=== PATIENT | female | born 1980 | race Caucasian/White ===

== ENCOUNTER 2023-02-09 17:12 | Emergency (ER) | payer OTHER, SELFPAY ==
[2023-02-09 17:28] VITALS: BP 107/70; PULSE 63; RESP 16; TEMP 36.7; O2SAT 98
--- NOTE | 2023-02-09 17:51 | ED.URI ---
HPI - URI/Sore Throat General Chief Complaint: Upper Respiratory Infection Stated Complaint: cough,short of breath Time Seen by Provider: 02/09/23 17:51 Source: patient Mode of arrival: ambulatory Limitations: no limitations History of Present Illness HPI Narrative: 42 yr old female presents with complaint of cough, nasal congestion for the past 5 days. Afebrile. reports shortness of breath with exertion starting today. Concern for pneumonia. No respiratory distress noted. All systems reviewed and negative except as noted above. Related Data Allergies Allergy/AdvReac Type Severity Reaction Status Date / Time Penicillins Allergy Vomiting Verified 02/09/23 17:58 Review of Systems Review of Systems: CONSTITUTIONAL: Denies fever, chills, or sweats. reports fatigue. EYES: Denies visual changes, redness, or discharge. ENT: reports rhinorrhea, congestion. Denies sore throat, or otalgia. CARDIOVASCULAR: Denies chest pain, palpitations, or edema. RESPIRATORY: Reports cough and dyspnea with exertion. GASTROINTESTINAL: Denies abdominal pain, nausea, vomiting, or diarrhea. GENITOURINARY: Denies dysuria or hematuria. SKIN: Denies rash or itching. MUSCULOSKELETAL: Denies back pain, joint pain, or myalgia. NEUROLOGIC: Denies headache, numbness, or weakness. PSYCHIATRIC: Denies anxiety or depression. All other systems reviewed are negative, except as documented in HPI. PMFSH Comments At time of signature, agree with nursing past medical, surgical, social and family history. There is no relevant family history pertinent to the presenting complaint. Exam Narrative: GENERAL: This is a well-nourished, well-developed patient, in no apparent distress. HEAD: normocephalic, atraumatic. EYES: PERRL. Sclera clear/white. Vision is grossly intact. EARS: External ears normal, auditory canals clear and without drainage, TMs normal without perforation. Hearing grossly intact. NOSE: External nose normal with no obvious nasal discharge, nares without redness, no rhinorrhea. THROAT: Mucous membranes moist, Mild erythema to posterior pharynx without swelling or exudates. NECK: Neck supple, non-tender without lymphadenopathy, masses or thyromegaly. CARDIOVASCULAR: Regular rate and rhythm without murmurs, gallops, or rubs. RESPIRATORY: Coarse lung sounds throughout all lung [place]. Breath sounds equal bilaterally. No wheezes, rales, SKIN: warm, Dry, intact with no suspicious lesions or rash, good texture and turgor. NEURO: awake, alert, and oriented to person, place and time. There were no obvious focal neurologic abnormalities. EXTREMITIES: No joint tenderness, effusion, or edema noted. Course Course Level of Care: Express Care Visit Vital Signs Vital signs: Vital Signs Temperature 36.7 C 02/09/23 17:28 Pulse Rate 63 02/09/23 17:28 Respiratory Rate 16 02/09/23 17:28 Blood Pressure 107/70 02/09/23 17:28 Pulse Oximetry 98 02/09/23 17:28 Oxygen Delivery Room Air 02/09/23 17:28 Temperature 36.7 C 02/09/23 17:28 Pulse Rate 63 02/09/23 17:28 Respiratory Rate 16 02/09/23 17:28 Blood Pressure 107/70 02/09/23 17:28 Pulse Oximetry 98 02/09/23 17:28 Oxygen Delivery Room Air 02/09/23 17:28 Reviewed MDM - URI/Sore Throat MDM Narrative Medical decision making narrative: Patient is aware of diagnosis, understands and agrees to treatment plan. Anticipatory guidance given. Patient agrees to follow-up as directed and is aware of reasons to seek care at the emergency department. Portions of this record may have been created with voice recognition software will treat patient with the antibiotic due to lung sounds , patient's symptoms. Discharge Plan Discharge Clinical Impression: Upper respiratory infection with cough and congestion Patient Disposition: Home, Self-Care Condition: Stable Instructions: Antibiotic Form, Upper Respiratory Infection (ED) Additional Instr
== END 2023-02-09 18:04 | disposition home or self-care (01) ==
PROVIDERS: Emergency Provider Nurse Practitioner Family
DX: J06.9 Acute upper respiratory infection, unspecified (principal)
CPT/HCPCS: 99203; G0463

== ENCOUNTER 2023-05-19 08:29 | Emergency (ER) | payer OTHER, SELFPAY ==
[2023-05-19 08:53] VITALS: BP 119/79; PULSE 73; RESP 18; TEMP 36.6; O2SAT 97
[2023-05-19 08:57] LABS: Basophils Percent Auto 0.2 % (0.2-1.2); Eosinophils Absolute Auto 0.1 K/mm3 (0-0.3); Eosinophils Percent Auto 0.6 % (0-4.4); Hematocrit 46.3 % (37.0-47.0); Hemoglobin 15.9 g/dL (12.0-15.0); Immature Granulocyte Absolute 0.05 K/mm3 (0.00-0.031); Immature Granulocyte Percent A 0.3 % (0-0.5); Lymphocytes Absolute Auto 2.18 K/mm3 (0.9-3.2); Lymphocytes Percent Auto 13.3 % (18.3-44.2); Mean Corpuscular HGB Conc 34.3 g/dl (32-36); Mean Corpuscular Hemoglobin 30.9 pg (26-34); Mean Corpuscular Volume 90.1 fl (80-100); Mean Platelet Volume 9.1 fl (7.4-10.4); Monocytes Absolute Auto 0.9 K/mm3 (0.1-0.6); Monocytes Percent Auto 5.2 % (2.6-8.5); Neutrophils Absolute Auto 13.2 K/mm3 (1.3-6.7); Neutrophils Percent Auto 80.4 % (45.5-73.1); Platelet Count Result 342 k/mm3 (150-375); Red Blood Count 5.14 M/mm3 (4.2-5.4); Red Cell Distribution Width 11.8 % (11.5-14.5); White Blood Count 16.4 K/mm3 (4.5-10.0)
[2023-05-19 09:17] LABS: Alanine Aminotransferase 31 U/L (6-35); Albumin Level 4.7 g/dL (3.5-5.1); Alkaline Phosphatase 66 U/L (38-126); Anion Gap 7 mmol/L (4-12); Aspartate Amino Transferase 35 U/L (14-36); Blood Urea Nitrogen 10 mg/dL (7-17); Calcium 9.7 mg/dL (8.4-10.2); Carbon Dioxide 24 mmol/L (22-30); Chloride 106 mmol/L (98-107); Estimated CRCL calculation 128 ml/min; Estimated Glomerular Filt Rate > 60; Glucose 96 mg/dL (65-110); Lipase 48 U/L (23-300); Potassium 3.5 mmol/L (3.4-5.0); Sodium 137 mmol/L (137-145)
[2023-05-19] MEDS: SODIUM CHLORIDE 0.9% IV 1,000 ML 999 ML IV CONT (09:30)
[2023-05-19 10:30] VITALS: BP 106/48; PULSE 58; RESP 16; O2SAT 99
--- NOTE | 2023-05-19 10:34 | ED.GENADULT ---
HPI - General Adult General Chief complaint: Abdominal Pain Stated complaint: STOMACH BUG Time Seen by Provider: 05/19/23 08:44 History of Present Illness HPI narrative: Patient is a 42-year-old female who presents ER with diarrhea and dehydration. Reports she has been having frequent watery stools over last 5 days. She feels like she is very dehydrated and fatigued. No blood in her stool. She did recently finish clindamycin that she took for a dental infection. No abdominal pain and no fevers. No syncope or dizziness. She cannot identify any alleviating factors. She has not had a large stool over last couple days due to her dehydration but gets the cramping feeling that she needs to have a bowel movement but cannot. Related Data Allergies Allergy/AdvReac Type Severity Reaction Status Date / Time Penicillins Allergy Vomiting Verified 02/09/23 17:58 Review of Systems Review of Systems: All systems reviewed & are unremarkable except as noted in HPI and below Constitutional: Constitutional: Denies chills, Reports fatigue and Denies fever(s) ENT: Reports system reviewed and no additional complaints, except as documented Cardiovascular: Cardiovascular: Reports no additional cardiovascular complaints Respiratory: Respiratory: Reports no additional respiratory complaints Gastrointestinal: Gastrointestinal: Denies abdominal pain, Denies constipation, Reports diarrhea, Denies nausea and Denies vomiting Genitourinary: Genitourinary: Reports no additional female genitourinary complaints PMF Past Medical History Medical History (Updated 05/19/23 @ 12:20 by Pawan Suh MD) Healthy female adult Surgical History Surgical History (Updated 05/19/23 @ 10:36 by Pawan Suh MD) No history of previous surgery Exam Narrative: GENERAL: Well-appearing, well-nourished, and in no acute distress. HEAD: Normocephalic, atraumatic. ENT: Mucous membranes moist. NECK: Supple. CHEST: Clear to auscultation. No respiratory distress. HEART: Regular rate and rhythm. Normal peripheral pulses. ABDOMEN: Soft, nontender, nondistended. EXTREMITIES: Normal range of motion. No edema. SKIN: Warm, dry, no rash. NEURO: Alert and oriented x3. PSYCH: Normal mood and affect. Course Course Emergency Course: Discussed lab results. Patient feels improved with fluids. Unable to provide a stool sample despite 4 hour stay in the ER. Discharge home. Vital Signs Vital signs: Vital Signs Temperature 97.8 F 05/19/23 08:53 Pulse Rate 73 05/19/23 08:53 Respiratory Rate 18 05/19/23 08:53 Blood Pressure 119/79 05/19/23 08:53 Pulse Oximetry 97 05/19/23 08:53 Temperature 97.8 F 05/19/23 08:53 Pulse Rate 60 05/19/23 11:30 Respiratory Rate 16 05/19/23 11:30 Blood Pressure 98/54 L 05/19/23 11:30 Pulse Oximetry 99 05/19/23 11:30 Medical Decision Making Vital Signs Vital Signs: Vital Signs Temperature 97.8 F 05/19/23 08:53 Pulse Rate 73 05/19/23 08:53 Respiratory Rate 18 05/19/23 08:53 Blood Pressure 119/79 05/19/23 08:53 Pulse Oximetry 97 05/19/23 08:53 Temperature 97.8 F 05/19/23 08:53 Pulse Rate 60 05/19/23 11:30 Respiratory Rate 16 05/19/23 11:30 Blood Pressure 98/54 L 05/19/23 11:30 Pulse Oximetry 99 05/19/23 11:30 Lab Data 05/19/23 08:49 05/19/23 08:49 Labs: Lab Results 05/19/23 05/19/23 Range/Units 08:49 10:29 WBC 16.4 H (4.5-10.0) K/mm3 RBC 5.14 (4.2-5.4) M/mm3 Hgb 15.9 H (12.0-15.0) g/dL Hct 46.3 (37.0-47.0) % MCV 90.1 (80-100) fl MCH 30.9 (26-34) pg MCHC 34.3 (32-36) g/dl RDW 11.8 (11.5-14.5) % Plt Count 342 (150-375) k/mm3 MPV 9.1 (7.4-10.4) fl Immature Gran % (Auto) 0.3 (0-0.5) % Neut % (Auto) 80.4 H (45.5-73.1) % Lymph % (Auto) 13.3 L (18.3-44.2) % [place] % (Auto) 5.2 (2.6-8.5) % Eos % (Auto) 0.6 (0-4.4) % Baso % (Auto) 0.
[2023-05-19 11:29] LABS: Appearance Urine Clear (Clear); Bacteria Urine Rare /hpf; Bilirubin Urine 1+ (Negative); Blood Urine 2+ (Negative); Color Urine Dark Yellow (Yellow); Glucose Urine UA Negative (Negative); Ketones Urine 4+ mg/dL (Negative); Leukocyte Esterase Ur Negative LEU/UL (Negative); Need Manual Microscopic Reviewed; Nitrate Urine Negative (Negative); Non Pathogenic Casts 0-2; Protein Urine 1+ mg/dL (Negative); Specific Grav Ur 1.033 (1.001-1.035); Squamous Epithelial Cell Urine Few /hpf (Few); WBC Urine 0-5 /hpf (0-3); pH Urine 5.5 (5.0-9.0)
[2023-05-19 11:30] VITALS: BP 98/54; PULSE 60; RESP 16; O2SAT 99
[2023-05-19 11:30] LABS: Add Urine Microscopic? YES
[2023-05-19 12:40] VITALS: BP 120/85; PULSE 60; RESP 16; O2SAT 100
== END 2023-05-19 12:40 | disposition home or self-care (01) ==
PROVIDERS: Emergency Provider Emergency Medicine
DX: K52.9 Noninfective gastroenteritis and colitis, unspecified (principal)
CPT/HCPCS: 36415; 80053; 81001; 81025; 83690; 85025; 96360; 99283; J7030

== ENCOUNTER 2024-07-10 08:07 | Emergency (ER) | payer OTHER, SELFPAY ==
[2024-07-10] VITALS (8 sets, daily range): BP systolic 129–138; BP diastolic 74–87; PULSE 64–76; RESP 16–20; TEMP 36.3; O2SAT 98–100
--- NOTE | ~2024-07-10 | CT_ITS ---
History: Left cervical radiculopathy PROCEDURE: CT cervical spine without intravenous contrast. COMPARISON: None TECHNIQUE: Multiple contiguous axial images of the cervical spine were performed without the administration of i ntravenous contrast. DLP: 221 mGy-cm FINDINGS: Straightening and slight reversal of the normal curvature of the cervical spine is identified, likely muscular in origin. No acute fractures are present. Trace degenerative disease with posterior osteophyte formation (at the level of T1/T2). The bilateral lung apices are unremarkable. No soft tissue abnormality is present. The airway is patent. Impression: Straightening and slight reversal of the normal curvature of the cervical spine, likely muscular in o rigin. Trace degenerative disease, without acute fracture. Reviewed, dictated and finalized at location A. Impression: Straightening and slight reversal of the normal curvature of the cervical spine , likely muscular in origin. Trace degenerative disease, without acute fracture.
--- NOTE | ~2024-07-10 | XR_ITS ---
CHEST RADIOGRAPH, PA AND LATERAL CLINICAL HISTORY: LEFT SIDE ARM AND NECK PAIN . COMPARISON: None available TECHNIQUE: PA and lateral views of the chest. FINDINGS The cardiomediastinal silhouette is unremarkable. The lungs are clear. IMPRESSION: No focal infiltrate or effusion. Reviewed, dictated and finalized at location A.
--- OUTSIDE RECORDS SUMMARY | 2024-07-10 08:09 | XMS_ITS | Clinical Summary ---
Author Organization [facility] Address [address] [place] [address] Care Team Providers Care Brake Engineer Name Role Phone Unknown, Provider Primary Care Provider Unavaila ble Source Comments [facility],non-owned Affiliates and Associated Physician Practices is amultiple site organization consisting of ambulatory clinics and hospital sitesin [place], [place], [place] and [place]. This disclosure is being madepursuant to the Care Everywhere program and may not contain all information available regarding this patient. Last updated 17.[facility] Allergies No known active allergies Medications * Be aware that medications may not be up to date on this document. Alwaysverify current medications with the patient. 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63 04/01/2016 2:41 PM CATERPILLAR MECHANIC Plan of Treatment Health Maintenance Due Date Last Done Comments LIPID TESTING 1980 MAMMOGRAM 1980 HIV SCREENING 07/09/1995 HEPATITIS C SCREENING 07/04/1998 DTAP/TDAP/TD VACCINES (1 - Tdap) 07/09/1999 HEPATITIS B VACCINE (1 of 3 - 19+ 3-dose series) 07/09/1999 COVID-19 VACCINE (1 - 2023-2 5 season) 2023 DEPRESSION SCREENING 02/16/2024 INFLUENZA VACCINE (Season Ended) 2024 ZOSTER VACCINE (1 of 2) 2030 HIB VACCINE Aged Out No longer eligi ble based on patient's age to complete this topic HPV VACCINE Aged Out No longer eligi ble based on patient's age to complete this topic MENINGOCOCCAL (Group B) VACC INE SHARED DECISION-MAKING Aged Out No longer eligibl e based on patient's age to complete this topic MENINGOCOCCAL GROUPS A/C/Y/W VACCINE Aged Out No longer eligible b ased on patient's age to complete this topic PNEUMOCOCCAL VACCINE Aged Out No long er eligible based on patient's age to complete this topic Insurance [employer] Care Teams Brake Engineer Relationship Specialty Start Date End Date Unknown, Provider PCP - General 04/01/16
[2024-07-10 08:54] LABS: BEDSIDEPREGUCG Negative (Negative)
--- NOTE | 2024-07-10 09:31 | ECG_ITS ---
Test Date: 2024-07-10 10:04:01 Measurements Intervals [place] Rate: 52 P: 71 OR: 168 QRS: -70 QRSD: 94 T: -36 QT: 454 QTc: 425 Interpretive Statements SINUS BRADYCARDIA LEFT ANTERIOR FASCICULAR BLOCK [QRS AXIS <= -45, QR IN I, RS IN II] No previous ECG available for comparison Electronically Signed On 07-10-2024 15:03:35 CDT by Hubert Guzman M.D.
--- NOTE | 2024-07-10 09:37 | ED_ITS ---
HPI - Back Pain/Injury General Chief Complaint: Back Pain/Injury Stated Complaint: upper back pain, left arm pain Time Seen by Provider: 07/10/24 09:00 History of Present Illness HPI Narrative: 44-year-old female presents emergency department for left neck/upper back pain that radiates to her left upper extremity for the past 4 days. Patient denies injury or trauma. She states the pain starts in the left neck/upper back and radiates into the posterior upper arm, over the elbow down to the distal radius. She reports tingling to the distal radial region but denies numbness or clumsiness to the hand. She denies saddle anesthesia, bowel or bladder incontinence, urinary retention, fever, IV drug use. She endorses a history of similar pain about a year ago and went to a chiropractor, was told she had a pinched nerve and received an adjustment at that time with improvement. She denies chest pain but states yesterday she was feeling short of breath, however she is attributing this to her pain. She has been attempting Tylenol, ibuprofen and naproxen at home with no improvement. She did try topical lidocaine with some improvement. Last dose of Tylenol and naproxen was at 4:00 a.m. today. Related Data Allergies Allergy/AdvReac Type Severity Reaction Status Date / Time Penicillins Allergy Vomiting Verified 07/10/24 09:22 Review of Systems 2 Review of Systems: All systems reviewed & are unremarkable except as noted in HPI and below PMFSH Past Medical History Medical History Healthy female adult Surgical History Surgical History No history of previous surgery Exam 2 Narrative: GENERAL: Well-appearing, well-nourished, and in no acute distress. HEAD: Normocephalic, atraumatic. EYES: EOMI. ENT: Nares clear, no rhinorrhea or epistaxis. Mucous membranes moist. NECK: Tenderness to C6 through T1 with no overlying crepitus, step-offs or deformities, no overlying skin changes. Tenderness to the left paraspinous muscles and over the left trapezius with no overlying skin changes. CHEST: Clear to auscultation. No respiratory distress. HEART: Regular rate and rhythm. No murmur heard. Normal peripheral pulses. ABDOMEN: Soft, nontender, nondistended, normal active bowel sounds. EXTREMITIES: No bony tenderness to the left upper extremity or left shoulder on palpation. Full active and passive range of motion of the left shoulder, pain exacerbated to the left trapezius with abduction of the left shoulder. Radial pulse 2 +. Extremities pink, warm and dry SKIN: Warm, dry, no rash. NEURO: No focal deficits. Alert and oriented x4. BUE and BLE sensation 5/5. Left radial, median and ulnar nerves are intact. Saddle anesthesia. Course Vital Signs Vital signs: Vital Signs Temperature 97.3 F L 07/10/24 08:20 Pulse Rate 64 07/10/24 08:20 Respiratory Rate 16 07/10/24 08:20 Blood Pressure 138/80 07/10/24 08:20 Pulse Oximetry 99 07/10/24 08:20 Temperature 97.3 F L 07/10/24 08:20 Pulse Rate 64 07/10/24 08:20 Respiratory Rate 16 07/10/24 08:20 Blood Pressure 138/80 07/10/24 08:20 Pulse Oximetry 99 07/10/24 08:20 MDM - Back Pain/Injury MDM Narrative Medical decision making narrative: 44-year-old female presents emergency department for atraumatic neck/upper back pain that radiates into the left upper extremity for the past 4 days. Vital signs are stable. Patient is afebrile nontoxic appearing. Exam is significant for the above, notably pain is reproduced with palpation the C6 13 for over a and paraspinous muscles. Patient is neurovascularly intact, see exam above. CBC with nonspecific leukocytosis of 13.7. Chemistries are unremarkable. Chest x-ray shows no acute cardiopulmonary findings. EKG was sinus bradycardia with rate of 52 ppm, normal NE interval, normal QRS duration, normal QTC, no ST elevations or depressions. Troponin undetectable. CT cervical spine shows straightening and slight reversal of the normal curvature of the cervical spine, likely muscular in origin with chased degenerative disease, no acute fracture. Patient updated on results. Presentation is consistent with a cervical radiculopathy, likely C6 dermatome per presentation. She has no red flag signs. She was given Flexeril, lidocaine patch and IM Decadron with some improvement, but still having pain. Requesting something stronger. Will provide norco in addition to Flexeril, lidocaine patches, and steroids for home. Will also provide follow-up for PCP and neurosurgery. Discussed strict ED return precautions. She and mother agreeable with the plan verbalized understanding. Discharged in stable condition. Lab Data 07/10/24 10:25 07/10/24 10:25 Labs: Lab Results 07/10/24 07/10/24 Range/Units 08:52 10:25 WBC 13.7 H (4.5-10.0) K/mm3 RBC 4.54 (4.2-5.4) M/mm3 Hgb 14.0 (12.0-15.0) g/dL Hct 41.1 (37.0-47.0) % MCV 90.5 (80-100) fl MCH 30.8 (26-34) pg MCHC 34.1 (32-36) g/dl RDW 11.9 (11.5-14.5) % Plt Count 245 (150-375) k/mm3 MPV 9.3 (7.4-10.4) fl Immature Gran % (Auto) 0.4 (0-0.5) % Neut % (Auto) 67.1 (45.5-73.1) % Lymph % (Auto) 25.6 (18.3-44.2) % [place] % (Auto) 5.3 (2.6-8.5) % Eos % (Auto) 1.3 (0-4.4) % Baso % (Auto) 0.3 (0.2-1.2) % Lymph # (Auto) 3.51 H (0.9-3.2) K/mm3 [place] # (Auto) 0.7 H (0.1-0.6) K/mm3 Eos # (Auto) 0.2 (0-0.3) K/mm3 Baso # (Auto) 0.0 (0.0-0.1) K/mm3 Abs Immat Gran (auto) 0.05 H (0.00-0.031) K/mm3 Absolute Neuts (auto) 9.2 H (1.3-6.7) K/mm3 Absolute Nucleated RBC 0.000 (0.0-0.012) K/mm3 Nucleated RBC % 0.0 (0.0-0.2) % Sodium 141 (137-145) mmol/L Potassium 3.4 (3.4-5.0) mmol/L Chloride 107 (98-107) mmol/L Carbon Dioxide 27 (22-30) mmol/L Anion Gap 7 (4-12) mmol/L BUN 7 (7-17) mg/dL Creatinine 0.38 L (0.7-1.0) mg/dL Estim Creat Clear Calc 131 ml/min Estimated GFR > 60 (59 - ) Glucose 101 (65-110) mg/dL Calcium 9.1 (8.4-10.2) mg/dL Troponin I < 0.012 (0.000-0.034) ng/mL POC Urine HCG, Qual Negative (Negative) Discharge Plan Discharge Clinical Impression: Cervical radiculopathy Patient Disposition: Home Condition: Stable Instructions: Antibiotic Form, Cervical Radiculopathy (ED) Additional Instructions: You were evaluated in the emergency department for neck/back pain that radiates to her left arm. Your workup here is reassuring. Your presentation is consistent with a pinched nerve which is likely around C6 as discussed. Please take the medications as directed. Do not mix the cyclobenzaprine and hydrocodone. Please follow-up closely with primary care provider neurosurgeon referred you to. Return to the emergency department if you develop fever, clumsiness in your hand or weakness in her hand, numbness in your groin, you lose control of her bowel or bladder, or other concerning symptoms. Patient Language: Amharic Prescriptions: New cyclobenzaprine 10 mg tablet 10 mg PO TID PRN (Reason: muscle spasm) Qty: 14 0RF lidocaine 5 % adhesive patch,medicated 1 patch topical DAILY Qty: 15 0RF Rx Instructions: leave on most painful area for up to 12 hrs. do not use more than 1 patch in a 24-hour period. methylprednisolone [Medrol (Catarino)] 4 mg tablets,dose pack See Rx Instructions PO .COMPLEX Qty: 21 0RF Rx Instructions: orally per package directions hydrocodone-acetaminophen 5-325 mg tablet 1 tablet PO Q8H PRN (Reason: pain) Qty: 10 0RF No Action azithromycin 250 mg tablet See Rx Instructions .ROUTE .COMPLEX Qty: 6 0RF Rx Instructions: For 250 mg dose pack: take 500 mg today (day 1), then 250 mg for 4 days (days 2-5) prednisone 20 mg tablet 40 mg PO DAILY 5 Days Qty: 10 0RF albuterol sulfate 90 mcg/actuation HFA aerosol inhaler 2 puff inhalation QID PRN (Reason: shortness of breath or wheezing) Qty: 8.5 0RF (DME) Aerochamber Plus Z Stat Spacer See Rx Instructions .Route Qty: 1 0RF Rx Instructions: As directed ondansetron 4 mg tablet,disintegrating 4 mg PO Q6H PRN (Reason: nausea and vomiting) Qty: 10 0RF Follow-up/Referrals: Yordan Wyatt MD [Physician] - Vikram Blanca MD [Physician] - UNKNOWN,DOCTOR [Primary Care Provider] -
--- OUTSIDE RECORDS SUMMARY | 2024-07-10 09:39 | XMS_ITS | Clinical Summary ---
Author Organization [facility] Address [address] [place] [address] Care Team Providers Care Brewery Technician Name Role Phone Unknown, Provider Primary Care Provider Unavaila ble Source Comments [facility],non-owned Affiliates and Associated Physician Practices is amultiple site organization consisting of ambulatory clinics and hospital sitesin [place], [place], [place] and [place]. This disclosure is being madepursuant to the Care Everywhere program and may not contain all information available regarding this patient. 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 Gender Identity Not on file Sexual Orientation Not on file Last Filed Vital Signs Vital Sign Reading Time Taken Comments Blood Pressure 122/66 04/01/2016 2:41 PM PULP PILER Pulse 78 04/01/2016 2:41 PM PULP PILER Temperature 37.3 C (99.1 F) 04/01/2016 2:41 PM PULP PILER Respiratory Rate 16 04/01/2016 2:41 PM PULP PILER Oxygen Saturation 98% 04/01/2016 2:41 PM PULP PILER Inhaled Oxygen Concentration - - Weight 59 kg (130 lb) 04/01/2016 2:41 PM PULP PILER Height 165.1 cm (5' 5) 04/01/2016 2:41 PM PULP PILER Body Mass Index 21.63 04/01/2016 2:41 PM PULP PILER Plan of Treatment Health Maintenance Due Date [...] age to complete this topic Insurance [employer] [facility] Address: [facility] [id number] [id number] Care Teams Brewery Technician Relationship Specialty Start Date End Date Unknown, Provider PCP - General 04/01/16
[2024-07-10] MEDS: CYCLOBENZAPRINE HCL 10 MG TABLET PO (10:16)
[2024-07-10] MEDS: dexAMETHasone SOD PHOS INJ 10 MG/ML 1 ML VIAL IM (10:17)
[2024-07-10] MEDS: LIDOCAINE 5% PATCH 1 PATCH TRANSDERM (10:17)
[2024-07-10 10:30] LABS: Basophils Percent Auto 0.3 % (0.2-1.2); Eosinophils Absolute Auto 0.2 K/mm3 (0-0.3); Eosinophils Percent Auto 1.3 % (0-4.4); Hematocrit 41.1 % (37.0-47.0); Immature Granulocyte Absolute 0.05 K/mm3 (0.00-0.031); Immature Granulocyte Percent A 0.4 % (0-0.5); Lymphocytes Absolute Auto 3.51 K/mm3 (0.9-3.2); Lymphocytes Percent Auto 25.6 % (18.3-44.2); Mean Corpuscular HGB Conc 34.1 g/dl (32-36); Mean Corpuscular Hemoglobin 30.8 pg (26-34); Mean Corpuscular Volume 90.5 fl (80-100); Mean Platelet Volume 9.3 fl (7.4-10.4); Monocytes Absolute Auto 0.7 K/mm3 (0.1-0.6); Monocytes Percent Auto 5.3 % (2.6-8.5); Neutrophils Absolute Auto 9.2 K/mm3 (1.3-6.7); Neutrophils Percent Auto 67.1 % (45.5-73.1); Platelet Count Result 245 k/mm3 (150-375); Red Blood Count 4.54 M/mm3 (4.2-5.4); Red Cell Distribution Width 11.9 % (11.5-14.5); White Blood Count 13.7 K/mm3 (4.5-10.0)
[2024-07-10 10:44] LABS: Anion Gap 7 mmol/L (4-12); Blood Urea Nitrogen 7 mg/dL (7-17); Calcium 9.1 mg/dL (8.4-10.2); Carbon Dioxide 27 mmol/L (22-30); Chloride 107 mmol/L (98-107); Estimated CRCL calculation 131 ml/min; Estimated Glomerular Filt Rate > 60; Glucose 101 mg/dL (65-110); Potassium 3.4 mmol/L (3.4-5.0); Sodium 141 mmol/L (137-145)
[2024-07-10 10:55] LABS: Troponin I < 0.012 ng/mL (0.000-0.034)
[2024-07-10] MEDS: HYDROcodone/acetaminophen (*CRX) 5-325 MG TABLET 1 TAB PO (11:29)
== END 2024-07-10 11:34 | disposition home or self-care (01) ==
PROVIDERS: Emergency Medicine; Emergency Provider Physician Assistant
DX: M54.12 Radiculopathy, cervical region (principal); R00.1 Bradycardia, unspecified; I44.4 Left anterior fascicular block
CPT/HCPCS: 36415; 71046; 72125; 80048; 81025; 84484; 85025; 93005; 96372; 99284; A9270; J1100

== ENCOUNTER 2024-07-16 16:40 | Emergency (ER) | payer OTHER, SELFPAY ==
[2024-07-16 16:43] VITALS: BP 109/54; PULSE 78; RESP 16; TEMP 36.6; O2SAT 100
--- NOTE | 2024-07-16 17:09 | PC.NURSE ---
EDPs made aware of pt c/o severe pain. Awaiting orders at this time.
--- NOTE | 2024-07-16 17:18 | ED_ITS ---
HPI - Back Pain/Injury General Chief Complaint: Back Pain/Injury Stated Complaint: Back pain Time Seen by Provider: 07/16/24 17:09 Source: patient Mode of arrival: ambulatory Limitations: no limitations History of Present Illness HPI Narrative: 44 years old white female came from home with her by private car complaining of left upper back pain radiating to left upper extremity started over 1 week ago was seen in our emergency room for the same complain July 10, 2024 diagnosis of cervical radiculopathy and was discharged on Flexeril, prednisone, Le[place], and lidocaine patch 5% Patient denies any fever, chills, nausea, vomiting, chest pain, shortness of breath or coughing Patient denies focal neuro deficit Patient is scheduled to be seen by Neurosurgery on the of this month.. Patient reports no relieving factors and everything else make it worse. Patient denies any numbness or tingling of the left upper extremity or weakness. Patient reported the symptoms started after she lay down on the couch the day before. Patient report having similar symptoms years ago after yd workup Related Data Allergies Allergy/AdvReac Type Severity Reaction Status Date / Time Penicillins Allergy Vomiting Verified 07/10/24 09:22 Review of Systems Review of Systems: All systems reviewed & are unremarkable except as noted in HPI and below PMFSH Past Medical History Medical History Healthy female adult Surgical History Surgical History No history of previous surgery Exam Narrative: General appearance: Well-developed, well-nourished, looks uncomfortable Skin: Normal color Head: Normocephalic, nontraumatic Eyes: Clear conjunctiva ENT: Oropharynx normal, ears normal, nose normal Neck: Supple, nontender Chest and respiratory: Airway patent, no respiratory distress, no accessory muscle use Heart: Regular rate/rhythm Abdomen: Soft, nontender, no organomegaly, quiet bowel sounds Vascular: Normal peripheral pulses, normal capillary refill. Musculoskeletal: Normal range of motion, nontender back, no rash, no swelling or deformity Neurologic: Alert and oriented ?3, CORRECTIONAL OFFICER SERGEANT is normal as tested, no gross motor deficit Course Vital Signs Vital signs: Vital Signs Temperature 36.6 C 07/16/24 16:43 Pulse Rate 78 07/16/24 16:43 Respiratory Rate 16 07/16/24 16:43 Blood Pressure 109/54 L 07/16/24 16:43 Pulse Oximetry 100 07/16/24 16:43 Oxygen Delivery Room Air 07/16/24 16:43 Temperature 36.6 C 07/16/24 16:43 Pulse Rate 78 07/16/24 16:43 Respiratory Rate 16 07/16/24 16:43 Blood Pressure 109/54 L 07/16/24 16:43 Pulse Oximetry 100 07/16/24 16:43 Oxygen Delivery Room Air 07/16/24 16:43 MDM - Back Pain/Injury Differential Diagnosis Differential diagnosis: Likely thoracic back pain and other (Left cervical radiculopathy) Critical Care Time Critical Care Time Critical Care Time: No Discharge Plan Discharge Clinical Impression: Acute upper back pain, Cervical radiculopathy Patient Disposition: Home Condition: Stable Instructions: Cervical Radiculopathy (ED) Additional Instructions: Return if symptoms are worsening , call your family physician for appointment, take Tylenol as as needed for aches and pain, continue home medications. Heating pad Physical therapy Call neurosurgery for early appointment Patient Language: Central African Prescriptions: New dexamethasone 4 mg tablet 4 mg PO BID Qty: 6 0RF diclofenac sodium 75 mg tablet,delayed release (DR/EC) 75 mg PO BID PRN (Reason: pain) Qty: 20 0RF No Action azithromycin 250 mg tablet See Rx Instructions .ROUTE .COMPLEX Qty: 6 0RF Rx Instructions: For 250 mg dose pack: take 500 mg today (day 1), then 250 mg for 4 days (days 2-5) prednisone 20 mg tablet 40 mg PO DAILY 5 Days Qty: 10 0RF albuterol sulfate 90 mcg/actuation HFA aerosol inhaler 2 puff inhalation QID PRN (Reason: shortness of breath or wheezing) Qty: 8.5 0RF (DME) Aerochamber Plus Z Stat Spacer See Rx Instructions .Route Qty: 1 0RF Rx Instructions: As directed ondansetron 4 mg tablet,disintegrating 4 mg PO Q6H PRN (Reason: nausea and vomiting) Qty: 10 0RF cyclobenzaprine 10 mg tablet 10 mg PO TID PRN (Reason: muscle spasm) Qty: 14 0RF lidocaine 5 % adhesive patch,medicated 1 patch topical DAILY Qty: 15 0RF Rx Instructions: leave on most painful area for up to 12 hrs. do not use more than 1 patch in a 24-hour period. methylprednisolone [Medrol (Catarino)] 4 mg tablets,dose pack See Rx Instructions PO .COMPLEX Qty: 21 0RF Rx Instructions: orally per package directions hydrocodone-acetaminophen 5-325 mg tablet 1 tablet PO Q8H PRN (Reason: pain) Qty: 10 0RF Follow-up/Referrals: UNKNOWN,DOCTOR [Non-Staff] - Stand Alone Forms: Work/School Release IP
[2024-07-16] MEDS: ONDANSETRON HCL ODT 4 MG TABLET PO (17:33)
[2024-07-16] MEDS: KETOROLAC (*BKC) 60 MG/2 ML VIAL IM (17:33)
[2024-07-16] MEDS: HYDROmorphone HCL INJ (*CRX) 2 MG/ML VIAL 1 MG IM (17:33)
--- OUTSIDE RECORDS SUMMARY | 2024-07-16 18:18 | XMS_ITS | Clinical Summary ---
Author Organization [facility] Address [address] [place] [address] Care Team Providers Care Driver Engineer Name Role Phone Unknown, Provider Primary Care Provider Unavaila ble Source Comments [facility],non-owned Affiliates and Associated Physician Practices is amultiple site organization consisting of ambulatory clinics and hospital sitesin [place], [place], [place] and [place]. This disclosure is being madepursuant to the Care Everywhere program and may not contain all information available regarding this patient. Last updated 17.[facility] Allergies No known active allergies Medications * [...] on file Legal Sex Female 11:23 AM TIP CEMENTER Gender Identity Not on file Sexual Orientation Not on file Last Filed Vital Signs Vital Sign Reading Time Taken Comments Blood Pressure 122/66 04/01/2016 2:41 PM TIP CEMENTER Pulse 78 04/01/2016 2:41 PM TIP CEMENTER Temperature 37.3 C (99.1 F) 04/01/2016 2:41 PM TIP CEMENTER Respiratory Rate 16 04/01/2016 2:41 PM TIP CEMENTER Oxygen Saturation 98% 04/01/2016 2:41 PM TIP CEMENTER Inhaled Oxygen Concentration - - Weight 59 kg (130 lb) 04/01/2016 2:41 PM TIP CEMENTER Height 165.1 cm (5' 5) 04/01/2016 2:41 PM TIP CEMENTER Body Mass Index 21.63 04/01/2016 2:41 PM TIP CEMENTER Plan of Treatment Health Maintenance Due Date [...] complete this topic Insurance [employer] Care Teams Driver Engineer Relationship Specialty Start Date End Date Unknown, Provider PCP - General 04/01/16
[2024-07-16 19:09] VITALS: BP 110/68; PULSE 80; RESP 20; TEMP 36.6; O2SAT 98
== END 2024-07-16 19:11 | disposition home or self-care (01) ==
PROVIDERS: Emergency Provider Emergency Medicine
DX: M54.12 Radiculopathy, cervical region (principal)
CPT/HCPCS: 96372; 99284; A9270; J1171; J1885

== ENCOUNTER 2024-11-17 14:44 | Emergency (ER) | payer OTHER, SELFPAY ==
[2024-11-17 14:47] VITALS: BP 124/80; PULSE 97; RESP 18; TEMP 36.6; O2SAT 98
--- OUTSIDE RECORDS SUMMARY | 2024-11-17 14:47 | XMS_ITS | Clinical Summary ---
Author Organization [facility] Address [address] [place] [address] Care Team Providers Care Discharging Machine Operator Name Role Phone Unknown, Provider Primary Care Provider Unavaila ble Source Comments [facility],non-owned Affiliates and Associated Physician Practices is amultiple site organization consisting of ambulatory clinics and hospital sitesin [place], [place], [place] and [place]. This disclosure is being madepursuant to the Care Everywhere program and may not contain all information available regarding this patient. Last updated 17.[facility] Allergies No known active allergies Medications * [...] on file Legal Sex Female 11:23 AM LINSEED CAKE TRIMMER Gender Identity Not on file Sexual Orientation Not on file Last Filed Vital Signs Vital Sign Reading Time Taken Comments Blood Pressure 122/66 04/01/2016 2:41 PM LINSEED CAKE TRIMMER Pulse 78 04/01/2016 2:41 PM LINSEED CAKE TRIMMER Temperature 37.3 C (99.1 F) 04/01/2016 2:41 PM LINSEED CAKE TRIMMER Respiratory Rate 16 04/01/2016 2:41 PM LINSEED CAKE TRIMMER Oxygen Saturation 98% 04/01/2016 2:41 PM LINSEED CAKE TRIMMER Inhaled Oxygen Concentration - - Weight 59 kg (130 lb) 04/01/2016 2:41 PM LINSEED CAKE TRIMMER Height 165.1 cm (5' 5) 04/01/2016 2:41 PM LINSEED CAKE TRIMMER Body Mass Index 21.63 04/01/2016 2:41 PM LINSEED CAKE TRIMMER Plan of Treatment Health Maintenance Due Date Last Done Comments LIPID TESTING 1980 MAMMOGRAM 1980 HIV SCREENING 07/09/1995 HEPATITIS C SCREENING 07/04/1998 DTAP/TDAP/TD VACCINES (1 - Tdap) 07/09/1999 HEPATITIS B VACCINE (1 of 3 - 19+ 3-dose series) 07/09/1999 HPV VACCINE (1 - 3-dose SCDM series) 07/09/2007 DEPRESSION SCREENING 02/16/2024 COVID-19 VACCINE (1 - 2023-2 5 season) 2024 INFLUENZA VACCINE (#1) 2024 ZOSTER VACCINE (1 of 2) 2030 [...] age to complete this topic Insurance [facility] Address: [facility] [id number] [place] [id number] Care Teams Discharging Machine Operator Relationship Specialty Start Date End Date Unknown, Provider PCP - General 04/01/16
[2024-11-17 16:33] VITALS: BP 106/82; PULSE 60; RESP 18; O2SAT 98
[2024-11-17 16:40] LABS: Hematocrit 49.9 % (37.0-47.0); Hemoglobin 17.5 g/dL (12.0-15.0); Immature Granulocyte Percent A 0.5 % (0-0.5); Lymphocytes Absolute Auto 1.59 K/mm3 (0.9-3.2); Mean Corpuscular HGB Conc 35.1 g/dl (32-36); Mean Corpuscular Hemoglobin 30.9 pg (26-34); Mean Corpuscular Volume 88.0 fl (80-100); Nucleated Red Blood Cells Absolute Auto 0.000 K/mm3 (0.0-0.012); Nucleated Red Blood Cells Perc 0.0 % (0.0-0.2); Platelet Count Result 320 k/mm3 (150-375); Red Blood Count 5.67 M/mm3 (4.2-5.4); White Blood Count 27.7 K/mm3 (4.5-10.0)
--- NOTE | 2024-11-17 16:42 | PC.NURSE ---
patient states she is unable to urinate at this time due to vomiting all day. aware a urine sample is needed. instructed to call if she has to use the bathroom.
[2024-11-17] MEDS: FAMOTIDINE 20 MG/2 ML VIAL IV PUSH (16:47)
[2024-11-17 16:52] VITALS: O2SAT 98
[2024-11-17 16:53] VITALS: BP 119/63; PULSE 61; RESP 17; TEMP 36.6; O2SAT 98
[2024-11-17 16:54] LABS: Alanine Aminotransferase 19 U/L (6-35); Albumin Level 5.1 g/dL (3.5-5.1); Alkaline Phosphatase 78 U/L (38-126); Anion Gap 12 mmol/L (4-12); Aspartate Amino Transferase 28 U/L (14-36); Bilirubin,Total 1.0 mg/dL (0.2-1.3); Blood Urea Nitrogen 9 mg/dL (7-17); Calcium 9.7 mg/dL (8.4-10.2); Carbon Dioxide 24 mmol/L (22-30); Chloride 103 mmol/L (98-107); Estimated CRCL calculation 105 ml/min; Estimated Glomerular Filt Rate > 60; Glucose 134 mg/dL (65-110); Lipase 57 U/L (23-300); Potassium 3.4 mmol/L (3.4-5.0); Sodium 139 mmol/L (137-145); Total Protein 8.6 g/dL (6.3-8.2)
[2024-11-17] MEDS: ONDANSETRON INJ 4 MG/2 ML VIAL IV PUSH (17:13)
[2024-11-17] MEDS: SODIUM CHLORIDE 0.9% IV 1,000 ML 999 ML IV CONT (17:13)
[2024-11-17 17:24] LABS: Add Urine Microscopic? YES; Appearance Urine Cloudy (Clear); Glucose Urine UA Negative (Negative); Leukocyte Esterase Ur Trace LEU/UL (Negative); Need Manual Microscopic Reviewed; Nitrate Urine Negative (Negative); Specific Grav Ur 1.028 (1.001-1.035)
--- NOTE | 2024-11-17 17:40 | ED.ALLEREA ---
HPI - Allergic Reaction General Chief complaint: Allergic Reaction <JULISSA Nichols Last Filed: 11/20/24 18:35> Stated complaint: allergic reaction <JULISSA Nichols Last Filed: 11/20/24 18:35> Time Seen by Provider: 11/17/24 16:29 <JULISSA Nichols Last Filed: 11/20/24 18:35> Source: patient <JULISSA Nichols Last Filed: 11/20/24 18:35> Mode of arrival: ambulatory <JULISSA Nichols Last Filed: 11/20/24 18:35> Limitations: no limitations <JULISSA Nichols Last Filed: 11/20/24 18:35> History of Present Illness HPI narrative: This is a 44 year old female that presents to the ER for hives. Ongoing since this morning. Reports she felt like she had a bug bite last night. Woke up this morning with hives, vomiting, diarrhea. <JULISSA Nichols Last Filed: 11/20/24 18:35> Related Data Allergies/adverse reactions: Allergies Allergy/AdvReac Type Severity Reaction Status Date / Time Penicillins Allergy Nausea and Verified 11/19/24 15:46 Vomiting <JULISSA Nichols Last Filed: 11/20/24 18:35> Review of Systems Review of Systems: All systems reviewed & are unremarkable except as noted in HPI and below <JULISSA Nichols Last Filed: 11/20/24 18:35> PMFSH Past Medical History Medical History: Medical History Healthy female adult <JULISSA Nichols Last Filed: 11/20/24 18:35> Surgical History Surgical History: Surgical History No history of previous surgery <JULISSA Nichols Last Filed: 11/20/24 18:35> Family History Family History: Family History Mother Depression Alcoholism Anxiety Hypertension Thyroid disorder Father Alcoholism Depression Anxiety Hypertension Thyroid disorder Sibling Alcoholism Diabetes mellitus Depression Anxiety Thyroid disorder Grandparent Alcoholism Asthma Diabetes mellitus Heart disease Thyroid disorder <Debbie Quinones PA-C - Last Filed: 11/20/24 18:35> Social History Social History: Social History Smoking packs per day: 0.5 Smoking cigarettes per day: 10.0 Smoking status: Unknown if ever smoked Tobacco type: cigarettes Alcohol intake: current Alcohol use details: rarely Substance use: current Substance use type: marijuana <Debbie Quinones PA-C - Last Filed: 11/20/24 18:35> Exam Narrative: GENERAL: Well-appearing, well-nourished, and in no acute distress. HEAD: Normocephalic, atraumatic. EYES: EOMI. ENT: Nares clear, no rhinorrhea or epistaxis. Mucous membranes moist. Oropharynx without tonsillar hypertrophy exudate or other lesions. CHEST: Clear to auscultation. No respiratory distress. No wheezes rales or rhonchi HEART: Regular rate and rhythm. No murmur heard. Normal peripheral pulses. ABDOMEN: Soft, nontender, nondistended, normal active bowel sounds. EXTREMITIES: Normal range of motion. No edema. SKIN: Warm, dry. Hives to the back of the upper legs NEURO: No focal deficits. Alert and oriented x3. PSYCH: Normal mood and affect <Debbie Quinones PA-C - Last Filed: 11/20/24 18:35> Course Vital Signs Vital signs: Vital Signs Temperature 97.9 F 11/17/24 14:47 Pulse Rate 97 11/17/24 14:47 Respiratory Rate 18 11/17/24 14:47 Blood Pressure 124/80 11/17/24 14:47 Pulse Oximetry 98 11/17/24 14:47 Oxygen Delivery Room Air 11/17/24 14:47 Temperature 97.9 F 11/17/24 16:53 Pulse Rate 62 11/17/24 20:00 Respiratory Rate 12 11/17/24 20:00 Blood Pressure 101/56 L 11/17/24 20:00 Pulse Oximetry 100 11/17/24 20:00 Oxygen Delivery Room Air 11/17/24 16:52 <Debbie Quinones PA-C - Last Filed: 11/20/24 18:35> Vital Signs Temperature 97.9 F 11/17/24 14:47 Pulse Rate 97 11/17/24 14:47 Respiratory Rate 18 11/17/24 14:47 Blood Pressure 124/80 11/17/24 14:47 Pulse Oximetry 98 11/17/24 14:47 Oxygen Delivery Room Air 11/17/24 14:47 Temperature 97.9 F 11/17/24 16:53 Pulse Rate 62 11/17/24 20:00 Respiratory Rate 12 11/17/24 20:00 Blood Pressure 101/56 L 11/17/24 20:00 Pulse Oximetry 100 11/17/24 20:00 Oxygen Delivery Room Air 11/17/24 16:52 <Mena Joyce APRN - Last Filed: 11/17/24 19:37> MDM - Allergic Reaction MDM Narrative Medical decision making narrative: Patient presents to the emergency department for hives, vomiting and diarrhea. Airway is patent. Oxygen saturation normal on room air. No swelling of the mouth or throat. Patient given Solu-Medrol, Pepcid, Benadryl, epinephrine. Reports improvement in her symptoms. Care taken over by SKY San at shift change pending continued monitoring Patient Education/Shared MDM: Results of lab work shared with patient. She endorses improvement of symptoms following medication administration. Patient strongly advised to maintain hydration status upon discharge and follow-up with her PCP for further evaluation. She will be discharged home with a prescription for EpiPens. Patient also strongly advised to take Zyrtec and Benadryl needed for ongoing symptoms. Strict return precautions provided. Patient verbalized understanding and is in agreement with plan. Vital signs stable at time of discharge. All questions answered. <Debbie Quinones PA-C - Last Filed: 11/20/24 18:35> Patient Education/Shared MDM: Results of lab work shared with patient. She endorses improvement of symptoms following medication administration. Patient strongly advised to maintain hydration status upon discharge and follow-up with her PCP for further evaluation. She will be discharged home with a prescription for EpiPens. Patient also strongly advised to take Zyrtec and Benadryl needed for ongoing symptoms. Strict return precautions provided. Patient verbalized understanding and is in agreement with plan. Vital signs stable at time of discharge. All questions answered. <Mena Joyce APRN - Last Filed: 11/17/24 19:37> Differential Diagnosis Differential diagnosis: Likely anaphylaxis, allergic reaction, angioedema, contact dermatitis, adverse reaction to drug, viral enanthem and urticaria <Debbie Quinones PA-C - Last Filed: 11/20/24 18:35> Lab Data Attestation: I reviewed the patient's lab results. <Debbie Quinones PA-C - Last Filed: 11/20/24 18:35> Result diagrams: 11/17/24 16:35 11/17/24 16:35 <Debbie Quinones PA-C - Last Filed: 11/20/24 18:35> Labs: Lab Results 11/17/24 11/17/24 11/17/24 Range/Units 16:35 17:05 18:24 WBC 27.7 H (4.5-10.0) K/mm3 RBC 5.67 H (4.2-5.4) M/mm3 Hgb 17.5 H D (12.0-15.0) g/dL Hct 49.9 H (37.0-47.0) % MCV 88.0 (80-100) fl MCH 30.9 (26-34) pg MCHC 35.1 (32-36) g/dl RDW 11.6 (11.5-14.5) % Plt Count 320 (150-375) k/mm3 MPV 9.5 (7.4-10.4) fl Immature Gran % (Auto) 0.5 (0-0.5) % Neut % (Auto) 90.4 H (45.5-73.1) % Lymph % (Auto) 5.7 L (18.3-44.2) % [place] % (Auto) 3.2 (2.6-8.5) % Eos % (Auto) 0.0 (0-4.4) % Baso % (Auto) 0.2 (0.2-1.2) % Lymph # (Auto) 1.59 (0.9-3.2) K/mm3 [place] # (Auto) 0.9 H (0.1-0.6) K/mm3 Eos # (Auto) 0.0 (0-0.3) K/mm3 Baso # (Auto) 0.1 (0.0-0.1) K/mm3 Abs Immat Gran (auto) 0.14 H (0.00-0.031) K/mm3 Absolute Neuts (auto) 25.0 H (1.3-6.7) K/mm3 Absolute Nucleated RBC 0.000 (0.0-0.012) K/mm3 Nucleated RBC % 0.0 (0.0-0.2) % Sodium 139 (137-145) mmol/L Potassium 3.4 (3.4-5.0) mmol/L Chloride 103 (98-107) mmol/L Carbon Dioxide 24 (22-30) mmol/L Anion Gap 12 (4-12) mmol/L BUN 9 (7-17) mg/dL Creatinine 0.49 L (0.7-1.0) mg/dL Estim Creat Clear Calc 105 ml/min Estimated GFR > 60 (59 - ) Glucose 134 H (65-110) mg/dL Calcium 9.7 (8.4-10.2) mg/dL Total Bilirubin 1.0 (0.2-1.3) mg/dL AST 28 (14-36) U/L ALT 19 (6-35) U/L Alkaline Phosphatase 78 (38-126) U/L Total Protein 8.6 H (6.3-8.2) g/dL Albumin 5.1 (3.5-5.1) g/dL Lipase 57 (23-300) U/L Urine Color Dark yellow (Yellow) Urine Appearance Cloudy H (Clear) Urine pH 5.5 (5.0-9.0) Ur Specific [place] 1.028 (1.001-1.035) Urine Protein 2+ H (Negative) mg/dL Urine Glucose (UA) Negative (Negative) mg/dL Urine Ketones 3+ H (Negative) mg/dL Ur Blood (Man) 2+ H (Negative) Urine Nitrate Negative (Negative) Urine Bilirubin 1+ H (Negative) Urine Urobilinogen 1.0 (<2.0) mg/dL Add Ur Microanalysis Reviewed Leukocyte Esterase Rfl Trace H (Negative) ALKA/UL Urine RBC 11-20 H (0-2) /hpf Urine WBC 0-5 (0-3) /hpf Ur Squamous Epith Cells Moderate (Few) /hpf Urine Bacteria 1+ H /hpf Urine Casts 11-20 POC Urine HCG, Qual Negative (Negative) <Debbie Quinones PA-C - Last Filed: 11/20/24 18:35> Lab Results 11/17/24 11/17/24 11/17/24 Range/Units 16:35 17:05 18:24 WBC 27.7 H (4.5-10.0) K/mm3 RBC 5.67 H (4.2-5.4) M/mm3 Hgb 17.5 H D (12.0-15.0) g/dL Hct 49.9 H (37.0-47.0) % MCV 88.0 (80-100) fl MCH 30.9 (26-34) pg MCHC 35.1 (32-36) g/dl RDW 11.6 (11.5-14.5) % Plt Count 320 (150-375) k/mm3 MPV 9.5 (7.4-10.4) fl Immature Gran % (Auto) 0.5 (0-0.5) % Neut % (Auto) 90.4 H (45.5-73.1) % Lymph % (Auto) 5.7 L (18.3-44.2) % [place] % (Auto) 3.2 (2.6-8.5) % Eos % (Auto) 0.0 (0-4.4) % Baso % (Auto) 0.2 (0.2-1.2) % Lymph # (Auto) 1.59 (0.9-3.2) K/mm3 [place] # (Auto) 0.9 H (0.1-0.6) K/mm3 Eos # (Auto) 0.0 (0-0.3) K/mm3 Baso # (Auto) 0.1 (0.0-0.1) K/mm3 Abs Immat Gran (auto) 0.14 H (0.00-0.031) K/mm3 Absolute Neuts (auto) 25.0 H (1.3-6.7) K/mm3 Absolute Nucleated RBC 0.000 (0.0-0.012) K/mm3 Nucleated RBC % 0.0 (0.0-0.2) % Sodium 139 (137-145) mmol/L Potassium 3.4 (3.4-5.0) mmol/L Chloride 103 (98-107) mmol/L Carbon Dioxide 24 (22-30) mmol/L Anion Gap 12 (4-12) mmol/L BUN 9 (7-17) mg/dL Creatinine 0.49 L (0.7-1.0) mg/dL Estim Creat Clear Calc 105 ml/min Estimated GFR > 60 (59 - ) Glucose 134 H (65-110) mg/dL Calcium 9.7 (8.4-10.2) mg/dL Total Bilirubin 1.0 (0.2-1.3) mg/dL AST 28 (14-36) U/L ALT 19 (6-35) U/L Alkaline Phosphatase 78 (38-126) U/L Total Protein 8.6 H (6.3-8.2) g/dL Albumin 5.1 (3.5-5.1) g/dL Lipase 57 (23-300) U/L Urine Color Dark yellow (Yellow) Urine Appearance Cloudy H (Clear) Urine pH 5.5 (5.0-9.0) Ur Specific [place] 1.028 (1.001-1.035) Urine Protein 2+ H (Negative) mg/dL Urine Glucose (UA) Negative (Negative) mg/dL Urine Ketones 3+ H (Negative) mg/dL Ur Blood (Man) 2+ H (Negative) Urine Nitrate Negative (Negative) Urine Bilirubin 1+ H (Negative) Urine Urobilinogen 1.0 (<2.0) mg/dL Add Ur Microanalysis Reviewed Leukocyte Esterase Rfl Trace H (Negative) ALKA/UL Urine RBC 11-20 H (0-2) /hpf Urine WBC 0-5 (0-3) /hpf Ur Squamous Epith Cells Moderate (Few) /hpf Urine Bacteria 1+ H /hpf Urine Casts 11-20 POC Urine HCG, Qual Negative (Negative) <Mena Joyce APRN - Last Filed: 11/17/24 19:37> Critical Care Time Critical Care Time Critical Care Time: No <Debbie Quinones PA-C - Last Filed: 11/20/24 18:35> Discharge Plan Discharge Clinical Impression: Allergic reaction Qualifiers: Encounter type: initial encounter Qualified Code(s): T78.40XA - Allergy, unspecified, initial encounter Leukocytosis Qualifiers: Leukocytosis type: unspecified Qualified Code(s): D72.829 - Elevated white blood cell count, unspecified <Debbie Quinones PA-C - Last Filed: 11/20/24 18:35> Patient Disposition: Home <JULISSA Nichols Last Filed: 11/20/24 18:35> Condition: Improved <JULISSA Nichols Last Filed: 11/20/24 18:35> Instructions: General Allergic Reaction (ED) <JULISSA Nichols Last Filed: 11/20/24 18:35> Additional Instructions: Return to the emergency department if you experience fever, difficulty swallowing, trouble breathing, or any other symptoms that are concerning to you Take a Pepcid and Zyrtec daily. Benadryl as needed Follow-up with primary care doctor Your white blood cell count was elevated today. This could be due to vomiting today. I recommend some repeat blood work to make sure this is normalizing <Debbie Quinones PA-C - Last Filed: 11/20/24 18:35> Patient Language: Serbian <Debbie Quinones PA-C - Last Filed: 11/20/24 18:35> Prescriptions: New epinephrine [Auvi-Q] 0.3 mg/0.3 mL auto-injector 0.3 mg IM Q5-15M PRN (Reason: anaphylaxis) Qty: 2 0RF Rx Instructions: do not exceed 3 doses per episode No Action (DME) Aerochamber Plus Z Stat Spacer See Rx Instructions .Route Qty: 1 0RF Rx Instructions: As directed loratadine 10 mg tablet 10 mg PO DAILY Qty: 14 0RF prednisone 20 mg tablet 40 mg PO DAILY 4 Days Qty: 8 0RF ondansetron 4 mg tablet,disintegrating 4 mg PO Q8H PRN (Reason: nausea and vomiting) Qty: 15 0RF lidocaine 5 % adhesive patch,medicated 1 patch topical DAILY Qty: 15 0RF Rx Instructions: leave on most painful area for up to 12 hrs. do not use more than 1 patch in a 24-hour period. hydrocodone-acetaminophen 5-325 mg tablet 1 tablet PO Q8H PRN (Reason: pain) Qty: 10 0RF dexamethasone 4 mg tablet 4 mg PO BID Qty: 6 0RF diclofenac sodium 75 mg tablet,delayed release (DR/EC) 75 mg PO BID PRN (Reason: pain) Qty: 20 0RF <Debbie Quinones PA-C - Last Filed: 11/20/24 18:35> Follow-up/Referrals: PHYSICIAN,INSULATION WORKER FURNACE INSTALLER [Primary Care Provider, Internal Medicine] Faraz Kelley MD [Physician, Family Practice] <Debbie Quinones PA-C - Last Filed: 11/20/24 18:35> Time of Disposition: 19:36 <Debbie Quinones PA-C - Last Filed: 11/20/24 18:35> 19:36 <Mena Joyce APRN - Last Filed: 11/17/24 19:37>
[2024-11-17] MEDS: EPINEPHrine HCL INJ 1 MG/ML AMPUL 0.3 MG IM (18:19)
[2024-11-17 18:24] VITALS: BP 104/59; PULSE 67; RESP 14; O2SAT 97
[2024-11-17 18:25] LABS: BEDSIDEPREGUCG Negative (Negative)
[2024-11-17] MEDS: LACTATED RINGERS 1,000 ML 999 ML IV CONT (19:07)
[2024-11-17 20:00] VITALS: BP 101/56; PULSE 62; RESP 12; O2SAT 100
== END 2024-11-17 20:00 | disposition home or self-care (01) ==
PROVIDERS: Emergency Provider Physician Assistant
DX: T78.40XA Allergy, unspecified, initial encounter (principal); D72.829 Elevated white blood cell count, unspecified; F17.210 Nicotine dependence, cigarettes, uncomplicated; X58.XXXA Exposure to other specified factors, initial encounter
CPT/HCPCS: 36415; 80053; 81001; 81025; 83690; 85025; 96361; 96372; 96374; 96375; 99284; J0166; J1200; J2405; J2919; J7030; J7120

== ENCOUNTER 2024-11-19 15:43 | Emergency (ER) | payer OTHER, SELFPAY ==
--- OUTSIDE RECORDS SUMMARY | 2024-11-19 15:45 | XMS_ITS | Clinical Summary ---
Author Organization [facility] Address [address] [place] [address] Care Team Providers Care General Practitioner Name Role Phone Unknown, Provider Primary Care Provider Unavaila ble Source Comments [facility],non-owned Affiliates and Associated Physician Practices is amultiple site organization consisting of ambulatory clinics and hospital sitesin [place], [place], [place] and [place]. This disclosure is being madepursuant to the Care Everywhere program and may not contain all information available regarding this patient. Last updated 17.[facility] Allergies No known active allergies Medications * [...] on file Legal Sex Female 11:23 AM CERTIFIED SKI PATROLLER Gender Identity Not on file Sexual Orientation Not on file Last Filed Vital Signs Vital Sign Reading Time Taken Comments Blood Pressure 122/66 04/01/2016 2:41 PM CERTIFIED SKI PATROLLER Pulse 78 04/01/2016 2:41 PM CERTIFIED SKI PATROLLER Temperature 37.3 C (99.1 F) 04/01/2016 2:41 PM CERTIFIED SKI PATROLLER Respiratory Rate 16 04/01/2016 2:41 PM CERTIFIED SKI PATROLLER Oxygen Saturation 98% 04/01/2016 2:41 PM CERTIFIED SKI PATROLLER Inhaled Oxygen Concentration - - Weight 59 kg (130 lb) 04/01/2016 2:41 PM CERTIFIED SKI PATROLLER Height 165.1 cm (5' 5) 04/01/2016 2:41 PM CERTIFIED SKI PATROLLER Body Mass Index 21.63 04/01/2016 2:41 PM CERTIFIED SKI PATROLLER Plan of Treatment Health Maintenance Due Date [...] age to complete this topic Insurance [employer]IG[employer] [facility] Address: [facility] [id number] [place] [phone] Care Teams General Practitioner Relationship Specialty Start Date End Date Unknown, Provider PCP - General 04/01/16
[2024-11-19 15:48] VITALS: BP 137/86; PULSE 93; RESP 16; TEMP 37.1; O2SAT 97
[2024-11-19 15:58] VITALS: O2SAT 98
[2024-11-19 16:00] VITALS: BP 148/99; PULSE 92; RESP 12; O2SAT 98
[2024-11-19] MEDS: EPINEPHrine HCL INJ 1 MG/ML AMPUL 0.3 MG IM (16:19)
[2024-11-19] MEDS: LORATADINE 10 MG TABLET PO (16:20)
[2024-11-19] MEDS: ONDANSETRON INJ 4 MG/2 ML VIAL IV PUSH (16:21)
[2024-11-19] MEDS: FAMOTIDINE 20 MG/2 ML VIAL IV PUSH (16:27)
[2024-11-19] MEDS: LACTATED RINGERS 1,000 ML 999 ML IV CONT (16:31)
[2024-11-19 16:33] VITALS: BP 148/99; PULSE 109; RESP 14; O2SAT 98
--- NOTE | 2024-11-19 17:04 | ED_ITS ---
HPI - Allergic Reaction General Chief complaint: Allergic Reaction Stated complaint: all reaction Time Seen by Provider: 11/19/24 16:05 History of Present Illness HPI narrative: Patient presents here with nausea, vomiting, swelling to her lips and tongue, itchy rash to her face and body, feels very similar to when she was here on Wednesday, was treated as allergic reaction with much improvement in symptoms until they started again. Has been taking Pepcid and Benadryl as instructed. Related Data Allergies Allergy/AdvReac Type Severity Reaction Status Date / Time Penicillins Allergy Nausea and Verified 11/19/24 15:46 Vomiting Review of Systems Review of Systems: All systems reviewed & are unremarkable except as noted in HPI and below PMFSH Past Medical History Medical History Healthy female adult Surgical History Surgical History No history of previous surgery Family History Family History Mother Depression Alcoholism Anxiety Hypertension Thyroid disorder Father Alcoholism Depression Anxiety Hypertension Thyroid disorder Sibling Alcoholism Diabetes mellitus Depression Anxiety Thyroid disorder Grandparent Alcoholism Asthma Diabetes mellitus Heart disease Thyroid disorder Social History Social History Smoking packs per day: 0.5 Smoking cigarettes per day: 10.0 Smoking status: Unknown if ever smoked Tobacco type: cigarettes Alcohol intake: current Alcohol use details: rarely Substance use: current Substance use type: marijuana Exam Narrative: EXAMINATION OF ORGAN SYSTEMS/BODY AREAS: Constitutional: Vital signs per nursing GENERAL: Nontoxic appearing HEAD: Normal with no signs of head trauma. EYES: Slightly red eyes bilaterally ENT: Slightly swollen lips and tongue, normal voice, no oral mucosal blisters LUNGS: Nonlabored breathing. HEART: [Regular rate and rhythm] ABD: [Soft], [nontender to palpation] EXT: Normal range of motion SKIN: Rash over face, body NEURO: [Alert and oriented x 3. No gross focal sensory or strength deficits.] PSYCH: Normal affect Course Vital Signs Vital signs: Vital Signs Temperature 98.7 F 11/19/24 15:48 Pulse Rate 93 11/19/24 15:48 Respiratory Rate 16 11/19/24 15:48 Blood Pressure 137/86 11/19/24 15:48 Pulse Oximetry 97 11/19/24 15:48 Temperature 98.7 F 11/19/24 15:48 Pulse Rate 109 H 11/19/24 16:33 Respiratory Rate 14 11/19/24 16:33 Blood Pressure 148/99 H 11/19/24 16:33 Pulse Oximetry 98 11/19/24 16:33 Oxygen Delivery Room Air 11/19/24 15:58 MDM - Allergic Reaction MDM Narrative Medical decision making narrative: MEDICAL DECISION MAKING AND COURSE IN THE ED WITH INTERPRETATION/REVIEW OF DIAGNOSTIC STUDIES: Electronic medical record was reviewed. Patient presented to the ED with a complaint of [possible allergic reaction]. Vitals [were within acceptable limits]. Physical exam revealed [pruritic rash with some slight swelling to some slight injected conjunctiva, without evidence of airway compromise, abdominal tenderness]. Based on the patient's history and physical exam, my differential includes but is not limited to [allergic reaction, also considered possible Chacorta Clemente's however patient without flu like symptoms, no blisters seen on mucosal L, rash does not appear consistent with Sheikh-Clemente]. Patient given epinephrine here, steroids, Zofran and fluids. On re-evaluation, the patient was feeling much improved. She has not had worsening of symptoms here; her rash has actually resolved as has her injected conjunctiva, and feels good about going home at this time. She is no longer nauseous. Prescription for prednisone given that she still has Pepcid, Benadryl, EpiPen, and followup with PCP, return for further issues. Patient verbalizes understanding. Discharge Plan Discharge Clinical Impression: Anaphylaxis Patient Disposition: Home Condition: Stable Instructions: General Allergic Reaction (ED) Additional Instructions: Please follow up with your doctor; take the medications as prescribed. You can always return for any further issues, especially if your symptoms return, or you develop difficulty breathing, swelling to your lips and tongue and throat, give yourself the EpiPen and go straight to the ER. Patient Language: Japanese Prescriptions: New loratadine 10 mg tablet 10 mg PO DAILY Qty: 14 0RF prednisone 20 mg tablet 40 mg PO DAILY 4 Days Qty: 8 0RF ondansetron 4 mg tablet,disintegrating 4 mg PO Q8H PRN (Reason: nausea and vomiting) Qty: 15 0RF No Action (DME) Aerochamber Plus Z Stat Spacer See Rx Instructions .Route Qty: 1 0RF Rx Instructions: As directed epinephrine [Auvi-Q] 0.3 mg/0.3 mL auto-injector 0.3 mg IM Q5-15M PRN (Reason: anaphylaxis) Qty: 2 0RF Rx Instructions: do not exceed 3 doses per episode lidocaine 5 % adhesive patch,medicated 1 patch topical DAILY Qty: 15 0RF Rx Instructions: leave on most painful area for up to 12 hrs. do not use more than 1 patch in a 24-hour period. hydrocodone-acetaminophen 5-325 mg tablet 1 tablet PO Q8H PRN (Reason: pain) Qty: 10 0RF dexamethasone 4 mg tablet 4 mg PO BID Qty: 6 0RF diclofenac sodium 75 mg tablet,delayed release (DR/EC) 75 mg PO BID PRN (Reason: pain) Qty: 20 0RF Follow-up/Referrals: PHYSICIAN,E[employer]CH[employer]IC [Primary Care Provider, Internal Medicine]
[2024-11-19 17:10] VITALS: BP 123/77; PULSE 95; RESP 18; TEMP 37.1; O2SAT 98
== END 2024-11-19 18:06 | disposition home or self-care (01) ==
PROVIDERS: Emergency Provider Emergency Medicine
DX: T78.2XXA Anaphylactic shock, unspecified, initial encounter (principal); X58.XXXA Exposure to other specified factors, initial encounter
CPT/HCPCS: 96361; 96372; 96374; 96375; 99284; A9270; J0166; J2405; J2919; J7120